=== PATIENT | male | born 2000 | race Caucasian/White ===

== ENCOUNTER 2019-03-06 09:28 | Emergency (ER) | payer BC ==
--- NOTE | 2019-03-06 09:41 | Emergency Department Record ---
History of Present Illness - General Chief Complaint: Dizziness Stated Complaint: DIZZINESS Time Seen by Provider: 03/06/19 09:39 Source: Patient Mode of Arrival: Ambulatory Limitations: No limitations - History of Present Illness Initial Comments: 18 yo male presents not feeling well since last . He reports that day he develop a dizziness, foggy feeling, out of body feeling, and trouble concentrating. He corresponds the timing to when he stopped vaping. No headaches. No blurry or double vision. He at times feels the dizziness. No syncope or rapid heart rate. He states it feels like he is "removed from his body". He feels like he can't feel his body. Like he is on Vicodin but he has not taken any (he had some after wisdom teeth removal). No pain. No nausea or vomiting. No cough. No rash. No sore throat. No weight gain or weight loss. No other new medications. No hallucinations. He admits to some anxiety. He is concerned about brain tumors after doing some research on his own. He is also concerned with the timing of stopping the vaping. PCP is Dr Andrade in [place] Complaint: Lightheadedness -: Days(s) (5) Timing: Sudden onset Description: Sense of movement History of Same: No History of Trauma: No Improves With: Nothing Worsens With: Movement Associated Symptoms: Other (See HPI) - [place] Coma Scale Eye Response: (4) Open spontaneously Motor Response: (6) Obeys commands Verbal Response: (5) Oriented Maria E Total: 15 - Related Data Allergies Allergy/AdvReac Type Severity Reaction Status Date / Time No Known Drug Allergies Allergy Verified 03/06/19 09:42 Review of Systems Constitutional: Denies: Chills, Fever, Malaise, Weakness Eyes: Denies: Eye discharge, Photophobia, Vision change ENT: Denies: Congestion, Throat pain Respiratory: Denies: Cough, Dyspnea Cardiovascular: Denies: Chest pain, Palpitations, Syncope Endocrine: Reports: Fatigue. Denies: Polydipsia, Polyuria Gastrointestinal: Denies: Abdominal pain, Diarrhea, Nausea, Vomiting Genitourinary: Denies: Dysuria, Frequency, Hematuria Musculoskeletal: Denies: Arthralgia, Back pain, Joint swelling, Myalgia Skin: Denies: Bruising, Change in color, Rash Neurological: Reports: Confusion (feels foggy), Weakness (generalized). Denies: Abnormal gait, Headache, Numbness, Paresthesias, Tingling, Tremors, Vertigo Psychiatric: Reports: Anxiety, Depression Hematological/Lymphatic: Denies: Anemia, Blood Clots Physical Exam - General General Appearance: Alert, Oriented x3, Cooperative, No acute distress Limitations: No limitations - Head Head exam: Atraumatic, Normocephalic, Normal inspection - Eye Eye exam: Normal appearance, PERRL, EOMI. negative: Conjunctival injection, Nystagmus, Periorbital swelling - ENT ENT exam: Normal exam, Mucous membranes moist, Normal orophraynx Ear exam: Normal external inspection Nasal Exam: Normal inspection Mouth exam: Normal external inspection Teeth exam: Normal inspection Throat exam: Normal inspection - Neck Neck exam: Normal inspection - Respiratory Respiratory exam: Normal lung sounds bilaterally. negative: Respiratory distress - Cardiovascular Cardiovascular Exam: Regular rate, Normal rhythm, Normal heart sounds - GI/Abdominal GI/Abdominal exam: Soft. negative: Tenderness - Rectal Rectal exam: Deferred - exam: Deferred - Extremities Extremities exam: Normal inspection. negative: Tenderness - Back Back exam: Reports: Full ROM. Denies: Tenderness - Neurological Neurological exam: Alert, CN II-XII intact, Normal gait, Oriented X3, Reflexes normal, Other (Normal Rhomberg, Normal FTN, Normal gait, No ataxia). negative: Abnormal gait, Altered, Motor sensory deficit - Psychiatric Psychiatric exam: Normal affect, Normal mood. negative: Agitated, Anxious, Depressed, Flat affect - Skin Skin exam: Dry, Intact, Normal color, Warm Course - Reevaluation(s) Reevaluation #1: 03/06/19 10:17 The CBC and BMP were reviewed and are normal 03/06/19 10:29 UDS is negative LFT's are normal 03/06/19 11:08 The TSH is normal The HCT is normal He has a normal examination as tested, normal vitals, normal labs and HCT I recommend reviewing the results with his PCP for close follow up Medical Decision Making - Lab Data Result diagrams: 03/06/19 09:48 03/06/19 09:48 Disposition Disposition: Discharge Clinical Impression: Dizziness Disposition: Home, Self-Care Condition: (1) Good Instructions: Dizziness (ED) Additional Instructions: Review this ER visit and the tests performed with your family doctor Call your doctor for the next available follow up appointment Return to the ER for a recheck if worse, any new concerns or questions Take the prescriptions provided as directed Forms: Patient Portal Access Time of Disposition: 11:09 Quality - Quality Measures Quality Measures: N/A - Blood Pressure Screening Does Patient Have Any of the Following: No Blood Pressure Classification: Hypertensive Reading Systolic Measurement: 123 Diastolic Measurement: 93 Screening for High Blood Pressure: < Pre-Hypertensive BP, F/U Documented > [G8950] Pre-Hypertensive Follow-up Interventions: Referral to alternative/primary care provider.
[2019-03-06 10:02] LABS: ABSOLUTE NEUTROPHIL COUNT 4.01; BASO % 0.5 % (0-6); EOS % 2.5 % (0-6); HEMATOCRIT 45.4 % (42.0-52.0); HEMOGLOBIN 15.3 gm/dl (14.0-18.0); LYMPH % 27.6 % (16-45); MEAN CELL VOLUME 89.4 fl (81-97); MEAN CORPUSCULAR HEMOGLOBIN 30.1 pg (27-33); MEAN CORPUSCULAR HGB CONC 33.7 g/dl (32-36); MEAN PLATELET VOLUME 10.1 fl (7.4-10.4); MONO % 6.4 % (0-9); PLATELET COUNT 405 K/uL (130-400); RED BLOOD COUNT 5.08 M/uL (4.40-5.70); RED CELL DISTRIBUTION WIDTH 12.7 % (11.5-14.5); WHITE BLOOD COUNT W/O DIFF 6.4 K/uL (4.2-12.2)
[2019-03-06 10:07] LABS: BLOOD UREA NITROGEN 14 mg/dL (6-20); CREATININE 0.9 mg/dL (0.7-1.2); EST GLOMERULAR FILTRATION RATE > 60 mL/min
[2019-03-06 10:08] LABS: TOTAL PROTEIN 7.4 g/dL (6.6-8.7)
[2019-03-06 10:10] LABS: GLUCOSE,RANDOM 93 mg/dL (74-109)
[2019-03-06 10:12] LABS: ALT/SGPT 14 U/L (<41)
[2019-03-06 10:13] LABS: ALB/GLOB RATIO 2.4 (1.1-1.8); ALBUMIN 5.2 g/dL (4.0-5.0); ALKALINE PHOSPHATASE 70 U/L (40-129); AST/SGOT 18 U/L (10.0-50.0)
[2019-03-06 10:23] LABS: THYROID STIMULATING HORMONE 2.16 uIU/mL (0.270-4.20)
[2019-03-06 10:27] LABS: AMPHETAMINE SCREEN URINE NOT DETECTED; BARBITURATE SCREEN URINE NOT DETECTED; BENZODIAZEPINE SCREEN URINE NOT DETECTED; COCAINE SCREEN URINE NOT DETECTED; METHADONE SCREEN URINE NOT DETECTED; METHAMPHETAMINE SCREEN NOT DETECTED; OPIATE SCREEN URINE NOT DETECTED; OXYCODONE SCREEN URINE NOT DETECTED; PHENCYCLIDINE SCREEN URINE NOT DETECTED; PROPOXYPHENE SCREEN URINE NOT DETECTED; THC SCREEN URINE NOT DETECTED; TRICYCLIC ANTIDEPRESSANT SCRN NOT DETECTED
--- NOTE | 2019-03-06 11:03 | CT SCAN REPORT ---
EXAMINATION: CT Head without IV Contrast EXAM DATE: 03/06/2019 10:54 AM TECHNIQUE: Standard protocol CT images of the head were obtained without intravenous contrast. Yepez l and sagittal reconstructed images were created. INDICATION: Dizziness, not feeling right COMPARISON: No relevant comparison studies HAND DOMINANCE: Unknown. ENCOUNTER: Not applicable FINDINGS: 1. No intracranial mass effect, shift of midline structures, intra-axial or extra-axial hemorrhage, o r other extra-axial fluid collections. 2. Brain volume and ventricular size are appropriate for patient's stated age. No ventricular outflow obstruction. 3. Coleman-white matter differentiation is preserved. No sulcal effacement. No suspicious areas of alter ed attenuation. 4. Midline structures and craniocervical junction are unremarkable. 5. No depressed or widely calvarial fractures. No aggressive calvarial lesions. 6. Visualized paranasal sinuses and temporal bone structures are well aerated. Unremarkable appearanc e of the orbital compartments. IMPRESSION: No acute intracranial abnormality to the limits of noncontrast CT technique. Dictated by: Bella Shelley MD on 03/06/2019 10:57 AM. .
== END 2019-03-06 11:17 | disposition home or self-care (01) ==
LOC: ER 09:28
DX: R42 Dizziness and giddiness (principal); Z87.891 Personal history of nicotine dependence
CPT/HCPCS: 70450; 80053; 80305; 84443; 85025; 99284